=== PATIENT | female | born 1985 | race Caucasian/White ===

== ENCOUNTER 2024-09-14 14:15 | Emergency (ER) | payer OTHER, SELFPAY ==
[2024-09-14] VITALS (8 sets, daily range): BP systolic 101–120; BP diastolic 57–74; PULSE 61–67; RESP 12–18; TEMP 36.6–36.9; O2SAT 98–100; BMI 26.0
--- NOTE | ~2024-09-14 | CT_ITS ---
CLINICAL HISTORY: R sided posterior head and neck pain with n v CT Head without contrast. CT angiography head and neck with contrast. 3D Postprocessing. Comparison: None Findings: HEAD CT: No intra-axial mass, midline shift, hydrocephalus, or acute hemorrhage. No significant atrophy-like change or white matter disease. Right maxillary sinus retention cysts. Sinuses mastoids otherwise within normal limits. The orbits are within normal limits. There is no acute fracture. HEAD AND NECK CTA: Aortic arch and cervical great vessels are patent. Intracranial arteries are patent. No aneurysm, dissection, or occlusion. No abnormal intracranial enhancement. The visualized thyroid gland is unremarkable. No cervical mass or fluid collection. Lung apices clear. No acute fracture. IMPRESSION: 1. Unremarkable head CT. 2. Patent head and neck CTA. This document has been electronically signed by: Natalya Watson MD on 09/14/2024 18:42:13
--- NOTE | 2024-09-14 14:40 | PC.NURSE ---
pt a&ox3, pt currently denying any symptoms as she states everything has resolved, orthostats performed, no c/o pain discomfort, call terry within reach, pt awaiting provider evaluation.
--- NOTE | 2024-09-14 14:54 | ECG_ITS ---
Test Reason : weakness Blood Pressure : */* mmHG Vent. Rate : 60 BPM Atrial Rate : 60 BPM P-R Int : 128 ms QRS Dur : 78 ms QT Int : 428 ms P-R-T Axes : 62 31 25 degrees QTcB Int : 428 ms Normal sinus rhythm Low voltage QRS Borderline ECG No previous ECGs available Referred By: La Nena Nguyễn Electronically Signed By: TAYA HERNANDEZ MD
--- NOTE | 2024-09-14 14:59 | ED.GENADULT ---
HPI - General Adult General Chief complaint: General Medical Stated complaint: DIZZY,NAUSEA,WEAK WHILE DRIVING,SUBSIDED PER EMS Time Seen by Provider: 09/14/24 14:54 Source: patient and EMS Mode of arrival: EMS Limitations: no limitations History of Present Illness ED Provider: MARISELA STEINBERG narrative: 38 yo female otherwise healthy not on any medications, who reports some recent R posterior head and neck pain she notes that last week she had an episode of near loc, dizziness with room spinning. Today she was driving and had another episode of sudden onset room spinning, overall felt very weak with nausea. She had to heat treat puller as she could not drive. This lasted for a few minutes. EMS was called and since her BP and HR improved and she was better they let her go. She tried to drive again and same episode of dizziness, near syncope and nausea. She denies chest pain/sob. She takes no meds. She has had no recent procedures. She reports recent atraumatic R neck and head pain. No ear pain, no vision changes, no focal weakness. MD complaint: near syncope Onset (ago): day(s) (just today but brief episode a week ago) Radiation: non-radiation Severity: mild Relieving factors: none Exacerbating factors: other (driving) Associated symptoms: nausea/vomiting and weakness Treatments prior to arrival: none Related Data Allergies Allergy/AdvReac Type Severity Reaction Status Date / Time No Known Allergies Allergy Verified 09/14/24 14:32 Review of Systems Review of Systems: Constitutional : No Fever, No Chills, No Fatigue ENT/Mouth : No sore throat, No Rhinorrhea Eyes: No Eye Pain, No Swelling, No Redness Cardiovascular : No Chest Pain, No SOB, No Dyspnea on Exertion Respiratory : No Cough, No Sputum Gastrointestinal : pos Nausea, No Vomiting, No Diarrhea, No abdominal Pain Genitourinary : No Dysuria, No Urinary Frequency, No Hematuria, Musculoskeletal : No joint pain, No Myalgias, No Joint Swelling Skin : No Skin Lesions, No rash Neuro : pos Weakness, No Numbness, pos Dizziness, no Headache All other systems reviewed and are negative [facility] Past Medical History Attestation statement: The following information was validated with the patient. Source: old records reviewed Medical History No pertinent past medical history Social History Social History Smoked in Last 30 Days: No Use of substances other than those prescribed or required for medical reasons: No Advance Directives: No Advance Directives Information Provided: No Do you have a plan to hurt others: No Plan Patient : No Physical Exam ED Vital Signs: Vital Signs - 24 hr 09/14/24 14:25 09/14/24 14:34 09/14/24 14:36 Temperature 98.0 F Pulse Rate 65 61 62 Respiratory Rate 18 Blood Pressure 103/57 L 101/60 111/65 Pulse Oximetry 98 Oxygen Delivery Method Room Air 09/14/24 14:38 09/14/24 16:00 09/14/24 19:11 Temperature 98.5 F 97.9 F Pulse Rate 65 67 65 Respiratory Rate 17 12 Blood Pressure 104/72 114/64 112/74 Pulse Oximetry 99 99 Oxygen Delivery Method Room Air Room Air BMI result Body Mass Index 26.0 Appearance: Alert. Oriented X3. No acute distress. Eyes: Pupils equal, round and reactive to light. ENT: Pharynx normal. Neck: Normal inspection. Neck supple. CVS: Normal heart rate and rhythm. Pulses normal. Respiratory: No respiratory distress. Breath sounds normal. Abdomen: Soft and nontender. Skin: Skin warm and dry. Normal skin color. Normal skin turgor. Extremities: No lower extremity edema. No calf ttp Neuro: Oriented X 3. No motor deficit. No sensory deficit. CN2-12 intact NIH Stroke Scale Internal: Initial- Upon Arrival Level of Consciousness: Alert Level of Consciousness Questions: Answers both questions correctly Level of Consciousness Commands: Performs both tasks correctly Best Gaze: Normal Visual: No visual loss Facial Palsy: Normal Motor Arm (Right): No drift Motor Arm (Left): No drift Motor Leg (Right): No drift Motor Leg (Left): No drift Limb Ataxia: Absent Sensory: Normal Best Language: No aphasia Dysarthia: Normal Extinction and Inattention: No abnormality Score: 0 Course Course Course Narrative: signed out to Bettie Dutton NP pending work up Medications Administered Discontinued Medications Generic Name Dose Route Start Last Admin Trade Name Freq PRN Reason Stop Dose Admin Iohexol 70 ml 09/14/24 17:40 09/14/24 17:40 Iohexol 350 Mg/Ml 100 Ml Infus..Btl IV 09/14/24 17:41 70 ml ONCE ONE Administration Medical Decision Making Medical Decision Making [facility] Narrative: 38 yo female with no sig PMH here with c/o episodes of dizziness and near syncope with nausea but no CP/SOB and no focal weakness. She notes R sided headache and R neck pain at this time given her symptoms will obtain labs, EKG, CTA:head/neck for dissection. She has no CP/SOB to suggest VTE or ACS. She denies any active GIB symptoms. She could have vertigo, anemia, dehydration, orthostatics, vert dissection 1899 patient is 38 years old with no significant past medical history comes here for multiple episodes of near-syncope episode for last 3 months does have a strong family history of cardiac history father had MS at age of 37 sister also had minor my who is 3 years older to her comes here for near-syncope episode like feeling sinking feeling in the heart while driving vitals were stable at that time patient is feeling much better at this time no symptoms initial cardiac workup is normal CTA head and neck done which is also negative Second set of troponin also negative will discharge patient home Differential Diagnosis Differential Diagnoses: The differential diagnosis associated with the presentation includes vertigo, anemia, dehydration, orthostatics, vert dissection Admission/Observation Consideration of admission/observation: Escalation of care including admission/observation considered Lab Data [facility] Lab Attestation statement: I reviewed the patient's lab results. 09/14/24 15:15 09/14/24 15:15 Labs: Lab Results 09/14/24 09/14/24 09/14/24 Range/Units 15:15 15:20 19:16 WBC 7.2 (4.8-10.8) X10*3/uL RBC 4.42 (4.20-5.50) X10*6/uL Hgb 11.8 L (12.0-16.0) g/dl Hct 35.3 L (37.0-47.0) % MCV 79.9 L (80.0-98.0) fL MCH 26.7 L (27.0-33.0) pg MCHC 33.4 (31.0-35.0) g/dl RDW 15.1 (11.0-16.0) % Plt Count 383 (160-400) X10*3/uL MPV 10.0 (9.4-12.3) fL Immature Gran % (Auto) 0.1 (0.0-0.4) % Neut % (Auto) 59.1 (45-73) % Lymph % (Auto) 30.8 (20-40) % Lassen % (Auto) 8.6 (2-11) % Eos % (Auto) 1.1 (0-4) % Baso % (Auto) 0.3 (0-2) % Lymph # (Auto) 2.2 (1.2-4.9) X10*3/uL [place] # (Auto) 0.6 (0.1-1.2) X10*3/uL Eos # (Auto) 0.1 (0.0-0.4) X10*3/uL Baso # (Auto) 0.0 (0.0-0.2) X10*3/uL Abs Immat Gran (auto) 0.01 (0.00-0.03) X10*3/uL Absolute Neuts (auto) 4.2 (2.0-8.3) x10*3/uL Absolute Nucleated RBC 0.000 (0.0-0.012) X10*3/uL Nucleated RBC % (auto) 0.0 (0.0-0.2) /100WBC Hold Blue Top SEE NOTE Sodium 143 (135-145) mmol/L Potassium 3.7 (3.3-5.1) mmol/L Chloride 109 H (96-108) mmol/L Carbon Dioxide 26 (22-29) mmol/L Anion Gap 12 (12-20) BUN 9 (9-16) mg/dL Creatinine 0.67 (0.5-1.4) mg/dL Estim Creat Clear Calc 106.3 Estimated GFR > 60 Random Glucose 83 (60-115) mg/dL Calcium 9.2 (8.4-10.2) mg/dL Magnesium 1.9 (1.6-2.6) mg/dL Total Bilirubin 0.7 (0.0-1.0) mg/dL Direct Bilirubin 0.3 (0.0-0.5) mg/dL AST 17 (5-31) U/L ALT 9 (0-31) U/L Alkaline Phosphatase 47 (39-117) U/L Troponin I High Sens 4.0 < 2.7 (<3.5-17.0) ng/L B-Natriuretic Peptide 38 (<100) pg/mL Total Protein 6.8 (6.5-8.0) g/dL Albumin 4.1 (3.5-5.0) g/dL Beta HCG, Quant < 2 mIU/mL Influenza Type A (PCR) NEGATIVE (Negative) Influenza Type B (PCR) NEGATIVE (Negative) RSV RNA Qual (PCR) NEGATIVE (Negative) SARS-CoV-2 RNA (RT-PCR) NEGATIVE (Negative) Independent Interpretation I performed an independent interpretation of an: EKG Interpretation: Rate: 60 Rhythm: NSR [place]: normal Normal P waves. Normal MICHAEL. Normal QRS complex. ST T wave : inverted t wave V1, no BERENICE qTC: 428 prior studies: no acute ischemia The study has been interpreted contemporaneously by me. . Independent Historian Clinical information obtained from an independent historian. History obtained from or confirmed by: EMS External Record Review External record reviewed: Outpatient record Discharge Plan Discharge Clinical Impression: Near syncope Patient Disposition: Home, Self-Care Instructions: Near Syncope (ED) Additional Instructions: Follow up with your retail experience specialist/PCP for further evaluation Drink plenty of fluids Print Language: Malay
[2024-09-14 15:25] LABS: MANUAL DIFF FLAG NO
[2024-09-14 15:29] LABS: Basophils Percent Auto 0.3 % (0-2); Eosinophils Absolute Auto 0.1 X10*3/uL (0.0-0.4); Eosinophils Percent Auto 1.1 % (0-4); Hematocrit 35.3 % (37.0-47.0); Hemoglobin 11.8 g/dl (12.0-16.0); Imm Gran Abs Auto 0.01 X10*3/uL (0.00-0.03); Imm Gran Pct Auto 0.1 % (0.0-0.4); Lymphocytes Absolute Auto 2.2 X10*3/uL (1.2-4.9); Lymphocytes Percent Auto 30.8 % (20-40); Mean Corpuscular HGB Conc 33.4 g/dl (31.0-35.0); Mean Corpuscular Hemoglobin 26.7 pg (27.0-33.0); Mean Corpuscular Volume 79.9 fL (80.0-98.0); Monocytes Absolute Auto 0.6 X10*3/uL (0.1-1.2); Monocytes Percent Auto 8.6 % (2-11); Neutrophils Absolute Auto 4.2 x10*3/uL (2.0-8.3); Neutrophils Percent Auto 59.1 % (45-73); Platelet Count 383 X10*3/uL (160-400); Red Blood Count 4.42 X10*6/uL (4.20-5.50); Red Cell Distribution Width 15.1 % (11.0-16.0); White Blood Count 7.2 X10*3/uL (4.8-10.8)
[2024-09-14 15:52] LABS: Alanine Aminotransferase 9 U/L (0-31); Albumin Level 4.1 g/dL (3.5-5.0); Alkaline Phosphatase 47 U/L (39-117); Anion Gap 12 (12-20); Aspartate Amino Transferase 17 U/L (5-31); Bilirubin Direct 0.3 mg/dL (0.0-0.5); Bilirubin Total 0.7 mg/dL (0.0-1.0); Blood Urea Nitrogen 9 mg/dL (9-16); Calcium 9.2 mg/dL (8.4-10.2); Carbon Dioxide 26 mmol/L (22-29); Chloride 109 mmol/L (96-108); Creatinine Clr Calc Pharmacy 106.3; Estimated Glomerular Filt Rate > 60; Glucose Random 83 mg/dL (60-115); Magnesium 1.9 mg/dL (1.6-2.6); Potassium 3.7 mmol/L (3.3-5.1); Sodium 143 mmol/L (135-145); Total Protein 6.8 g/dL (6.5-8.0)
[2024-09-14 15:57] LABS: B Type Natriuretic Peptide 38 pg/mL (<100)
[2024-09-14 16:04] LABS: Influenza A PCR NEGATIVE (Negative); Influenza B PCR NEGATIVE (Negative); Resp Syncy Virus RNA Qual PCR NEGATIVE (Negative); SARS COV2 PCR INHOUSE NEGATIVE (Negative)
[2024-09-14 16:27] LABS: HCG Quantitative < 2 mIU/mL
[2024-09-14] MEDS: iohexoL 350 MG/ML 100 ML INFUS..BTL 70 ML IV (17:40)
[2024-09-14 19:43] LABS: Troponin-I High Sensitivity < 2.7 ng/L (<3.5-17.0)
--- NOTE | 2024-09-14 20:07 | PC.NURSE ---
symptoms resolved upon d/c. ambulates steadily without symptoms with acquaintance
== END 2024-09-14 20:07 | disposition home or self-care (01) ==
PROVIDERS: Emergency Medicine; Emergency Provider Internal Medicine; PCP Family Medicine
DX: R55 Syncope and collapse (principal); R11.2 Nausea with vomiting, unspecified; R29.700 NIHSS score 0; Z03.818 Encounter for observation for suspected exposure to other biological agents ruled out
CPT/HCPCS: 0241U; 36415; 70496; 70498; 80048; 80076; 83735; 83880; 84484; 84702; 85025; 93005; 99284; Q9967

== ENCOUNTER → 2024-09-14 14:54 | Outpatient (BNV) | payer OTHER, SELFPAY | PROVIDERS: Emergency Provider Internal Medicine; PCP Family Medicine; Visit Provider Internal Medicine Cardiovascular Disease | DX: R53.1 Weakness (principal) | CPT/HCPCS: 93010 ==

== ENCOUNTER → 2024-09-14 15:13 | Outpatient (BNV) | payer OTHER, SELFPAY | PROVIDERS: Emergency Provider Internal Medicine; PCP Family Medicine; Visit Provider Radiology Diagnostic Radiology | DX: M54.2 Cervicalgia (principal); R51.9 Headache, unspecified; R11.2 Nausea with vomiting, unspecified | CPT/HCPCS: 70496; 70498 ==